=== PATIENT | female | born 1960 | race Caucasian/White ===

== ENCOUNTER → 2018-07-21 | Outpatient (CLI) | payer OTHER, MEDICAID | LOC: FIMAGING 14:03 | DX: Z12.31 Encounter for screening mammogram for malignant neoplasm of breast (principal) ==

== ENCOUNTER 2018-11-29 10:39 | Inpatient (IN) | payer OTHER, MEDICAID ==
[2018-11-29] MEDS ORDERED: NS 1,000 ML IV ONE (11:18)
[2018-11-29 11:20] LABS: PLATELET COUNT 372 10^3/uL (150-400)
[2018-11-29] MEDS ORDERED: IOHEXOL 350mgI/ML (OMNIPAQUE) 150 ML BTL IV ONE (14:02)
--- NOTE | 2018-11-29 14:29 | EDPHY ---
General - History Smoking Status: Unknown if ever smoked Time Seen by Provider: 11/29/18 12:15 Narrative: CLINICAL IMPRESSION: Hypoxia, lethargy, leukocytosis ASSESSMENT/PLAN: Patient is a 58-year-old female who resides at [facility] with a history of Parkinson's disease and bipolar disorder. Patient sent here for further evaluation of increased oxygen needs and emesis. Patient is afebrile, chronically ill appearing however not toxic-appearing. History mostly obtained by nurse practitioner Scott Buitrago at [facility], patient difficult historian and minimally interactive. Sent here with concerns of aspiration pneumonia. CBC revealed mild leukocytosis of 13,000, metabolic panel grossly unremarkable without evidence of metabolic abnormality or acute kidney injury. [place] level WNL. Chest x-ray with no evidence of pneumonia. Symptoms have been ongoing for several days, low suspicion for ACS. No clinical findings to suggest CHF. In light of increased oxygen needs and sedentary life style, proceeded with CTA chest with concern for pulmonary embolism. CT chest with mild atelectasis, no evidence of pneumonia or pulmonary embolism. Patient had generalized, nonfocal tenderness and grimacing with abdominal palpation. CT of the abdomen and pelvis revealed no acute intra- abdominal findings. Patient has had no diarrhea or fever, she has not been on any recent antibiotics. She had no signs of meningismus to suggest meningococcemia. I do not suspect C difficile or norovirus. It is unclear the exact etiology of her hypoxia, suspect secondary to dehydration status and likely viral illness in light of several days of emesis; no clear source of infection. Blood cultures pending. I was unable to obtain a urine sample in the emergency department however one is ordered and pending. The patient remained hemodynamically stable in the emergency department requiring 4 L of oxygen via nasal cannula. She will be admitted to the hospitalist service for further evaluation and management, I spoke with Dr. Hughes who will be the admitting physician. DIFFERENTIAL DX: Infectious process, PE, UTI, medication complication ED COURSE: 1115: Discussed with Dr. Schmidt 12:00 p.m.: Case discussed with patient's primary care provider at [facility] nurse practitioner Scott buitrago. He reports this past patient had multiple episodes of emesis, they performed a CBC and a CMP which were unremarkable. Patient continued to have emesis through the weekend which she presumed was gastritis however staff informed him that they were concerned about increased lethargy. Patient also was requiring oxygen during the daytime which is unusual for her. She is typically on 2 L of oxygen at nighttime only and is now requiring 4 L of oxygen throughout the day. Patient is difficult to understand at her baseline. CHIEF COMPLAINT: Lethargy, emesis, hypoxia HPI: Patient is a 58-year-old female with a significant history of Parkinson's, bipolar, anxiety and functional dyspepsia who was sent in to the emergency department by Alcides Fagan for further evaluation of hypoxia and emesis. Per nursing staff, patient has had increased lethargy, multiple episodes of emesis and increased oxygen needs that has been progressing over the last several days. Patient has had no fever, is very difficult to understand her baseline. They report very little intake over the last several days secondary to emesis. She has had no complaints of chest pain, shortness of breath, abdominal pain, cough or urinary symptoms. There specifically concerned about aspiration pneumonia. PMH: Parkinson's, bipolar disorder Family History: Noncontributory Social History: Denies, lives at a half-way facility. REVIEW OF SYSTEMS: All other systems negative Constitutional: No fever, no chills, appetite change. Eyes: No discharge, vision change. ENT: No sore throat, congestion, ear pain. Cardiovascular: No chest pain, no palpitations. Respiratory: Hypoxia. Gastrointestinal: Emesis. Genitourinary: No hematuria, dysuria, flank pain, pelvic pain Musculoskeletal: No back pain, joint swelling, joint pain, myalgias. Skin: No rashes, color change. Neurological: No headache, dizziness, weakness. PHYSICAL EXAM: General Appearance: Patient is chronically ill-appearing. She does open her eyes when I asked her name, she does not specifically answer questions. HENT: Normocephalic, atraumatic. Bilateral external ears are normal. Bilateral tympanic membranes are normal with pearly waters reflex. Nares are clear, mucosa is moist Oropharynx is clear, oropharynx is dry uvula is midline. There is no tonsillar enlargement or exudate. Eyes: PERRLA, right pupil approximately 3 mm and reactive, left pupil is approximately 2 mm and less reactive. There is hyperemia generally to the left conjunctiva. When reviewing her records, this is her baseline. Neck: Supple, nontender, no lymphadenopathy, no midline pain, FROM, no meningismus. Respiratory: There are no retractions, lungs are clear to auscultation. Cardiac: Regular rate and rhythm, no murmurs or gallops. Gastrointestinal: Abdomen is soft, on initial examination she has no tenderness to palpation, bowel sounds normal, no masses/hernia, no rigidity, guarding or focal peritoneal findings. Neurological: Alert, arousable, diminished mental status as mentioned above. Patient does follow commands, strength is equal bilateral upper and lower extremities. Skin: Warm, dry, no rashes, no nodules on palpation. Musculoskeletal: Extremities are symmetrical, full range of motion, no tenderness, deformity, swelling, or erythema. MEDICAL DECISION MAKING: Patient was seen independently. Secondary supervising physician at time of evaluation was Dr. Schmidt. Diagnosis: Hypoxia, lethargy, leukocytosis. New, requires workup Summary: See Assessment and Plan for summary of ED visit Clinical lab tests: ordered / reviewed. Independent visualization of images, tracing, or specimens: Yes. 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 Schmidt, Dr. Hughes Patient Progress: Stable, admit. (Analy Crook) Medical Decision Making: I did not see this patient while she was in the emergency department. However her care was discussed with the PA while the patient was in the department. I agree with treatment plan and management (Vinay Schmidt) - Objective Vital Signs: Initial Vital Signs Temperature (C) 37.6 C 11/29/18 10:48 Heart Rate 69 11/29/18 10:48 Respiratory Rate 18 11/29/18 10:48 Blood Pressure 135/80 H 11/29/18 10:48 O2 Sat (%) 88 L 11/29/18 10:48 O2 Delivery Mode Nasal Cannula O2 (L/minute) 2 Allergies/Adverse Reactions: Milk Containing Products Allergy (Unknown, Unverified 11/29/18 10:46) codeine [Codeine] Allergy (Unverified 11/29/18 10:46) tetracycline [Tetracycline] Allergy (Unverified 11/29/18 10:46) dairy Allergy (Uncoded 11/29/18 10:46) Home Medications: Medication Instructions Recorded Acetaminophen [Tylenol ES 500 mg 1,000 mg PO Q6 PRN 11/29/18 (*)] Carbidopa/Levo Cr 25/100Mg 1 tab PO QID@07,12,16,20 11/29/18 [Sinemet CR 25/100 MG (*)] Carbidopa/Levodopa 25/100Mg 2 tab PO QID@08,12,16,20 11/29/18 [Sinemet 25/100 MG (*)] Cholecalciferol Vit D3 [Vitamin D3 50,000 unit PO FR 11/29/18 (*)] Entacapone [Comtan 200 MG (RX)] 200 mg PO TID@08,16,20 11/29/18 Hydrocodone/APAP 5/325 [[place] 2 each PO Q6 PRN 11/29/18 5/325 (*)] Hydrocodone/APAP 5/325 [[place] 2 tab PO HS 11/29/18 5/325 (*)] Lactulose [Enulose] 20 gm PO DAILY 11/29/18 Levothyroxine [Synthroid 88 mcg 88 mcg PO DAILY06 11/29/18 (*)] [place] Carbonate 150 mg PO TID@,12,20 11/29/18 Magnesium Hydroxide [Milk of 30 ml PO DAILY PRN 11/29/18 Magnesia] OLANZapine [ZyPREXA 2.5 mg (*)] 7.5 mg PO HS 11/29/18 Ondansetron [Ondansetron Odt] 4 mg PO Q8 PRN 11/29/18 Petrolat,Wht/Min Oil/Sod Chl 0.25 inch LEFTEYE HS 11/29/18 [Refresh P.m. Ointment] Polyethylene Glycol 3350 [Miralax 17 gm PO Q2D 11/29/18 17 gm (*)] Polyvinyl Alcohol [Artificial 1 drop OP QID 11/29/18 Tears] Ranitidine HCl 150 mg PO HS 11/29/18 Sennosides/Docusate Sodium 1 each PO BID 11/29/18 [Senna-S Tablet] Simethicone [Mylicon 80 mg (OTC)] 80 mg PO TID PRN 11/29/18 Venlafaxine Xr [Effexor Xr] 1 tab PO DAILY 11/29/18 clonazePAM [Clonazepam] 1 tab PO Q12H PRN 11/29/18 traZODone [traZODONE 50MG (*)] 25 mg PO HS 11/29/18 Benzocaine [Anbesol] 1 huy MM Q8HRS PRN 11/30/18 Menthol [Mineral Freez] 1 huy TP TID PRN 11/30/18 Sennosides/Docusate Sodium 1 each PO BID PRN 11/30/18 [Senna-S Tablet] Laboratory Results: Laboratory Results 11/29/18 11:05 11/29/18 11:05 Microbiology Results: MICROBIOLOGY 11/29/18 11:05 Blood Blood Culture - Preliminary 11/29/18 11:05 Blood Blood Culture - Preliminary Medications Given: Carbidopa/Levodopa (Sinemet Cr) 1 tab PO QID [facility] Stop: 05/29/19 09:14 Last Admin: 12/01/18 12:45 Dose: 1 tab Carbidopa/Levodopa (Sinemet) 2 tab PO QID [facility] Stop: 05/29/19 09:14 Last Admin: 12/01/18 12:44 Dose: 2 tab Cholecalciferol (D3-50) 50,000 unit PO Q7D [facility] Stop: 05/29/19 08:59 Last Admin: 11/30/18 10:55 Dose: 50,000 unit Enoxaparin Sodium (Lovenox) 40 mg SC DAILY [facility] Stop: 05/29/19 08:59 Last Admin: 12/01/18 10:33 Dose: 40 mg Entacapone (Comtan) 200 mg PO TID [facility] Stop: 05/29/19 08:59 Last Admin: 12/01/18 10:29 Dose: 200 mg Famotidine (Pepcid) 20 mg PO HS [facility] Stop: 05/29/19 20:59 Last Admin: 11/30/18 20:35 Dose: 20 mg Sodium Chloride (Ns) 1,000 mls @ 125 mls/hr IV CONT [facility] Stop: 05/28/19 14:59 Last Admin: 11/30/18 20:32 Dose: 1,000 mls Levothyroxine Sodium (Synthroid) 88 mcg PO DAILY06 [facility] Stop: 05/30/19 05:59 Last Admin: 12/01/18 05:07 Dose: 88 mcg [place] Carbonate ([place] Carbonate) 150 mg PO TID [facility] Stop: 05/29/19 09:14 Last Admin: 12/01/18 10:29 Dose: 150 mg Olanzapine (Zyprexa) 7.5 mg PO HS [facility] Stop: 05/29/19 20:59 Last Admin: 11/30/18 20:34 Dose: 7.5 mg Polyethylene Glycol (Miralax) 17 gm PO Q2D [facility] Stop: 05/29/19 08:59 Last Admin: 11/30/18 11:35 Dose: Not Given Venlafaxine HCl (Effexor Xr) 150 mg PO DAILY [facility] Stop: 05/29/19 08:59 Last Admin: 12/01/18 10:29 Dose: 150 mg Discontinued Medications Hydromorphone HCl (Dilaudid) 0.2 - 0.4 mg IVP Q4HRS PRN PRN Reason: Pain, Severe Unable to Take PO Stop: 12/09/18 14:54 Last Admin: 11/30/18 08:34 Dose: 0.4 mg Sodium Chloride (Ns) 1,000 mls @ 0 mls/hr IV ONCE ONE PRN Reason: Wide Open Stop: 11/29/18 11:19 Last Admin: 11/29/18 11:28 Dose: 1,000 mls Lorazepam (Ativan Injection) 0.5 - 1 mg IVP Q8HRS PRN PRN Reason: Anxiety, Unable to Take PO Stop: 05/28/19 15:06 Last Admin: 11/30/18 08:37 Dose: 1 mg Departure - Departure Disposition: [facility]
[2018-11-29] MEDS ORDERED: ACETAMINOPHEN 650 MG SUPP PR PRN (14:55)
[2018-11-29] MEDS ORDERED: HYDROmorphONE/DILAUDID 1 MG/ML INJ IVP PRN (14:55)
[2018-11-29] MEDS ORDERED: PROMETHAZINE HCL 25 MG/ML INJ IVP PRN (14:55)
[2018-11-29] MEDS ORDERED: ACETAMINOPHEN 325 MG TAB PO PRN (14:55)
[2018-11-29] MEDS ORDERED: ONDANSETRON 4 MG/2 ML VIAL IVP PRN (14:55)
[2018-11-29] MEDS ORDERED: ONDANSETRON DISINTEGRATING 4 MG TAB PO PRN (14:55)
[2018-11-29] MEDS ORDERED: LORazepam 2 MG/ML INJ IVP PRN (15:07)
[2018-11-29] MEDS ORDERED: ALBUTEROL 3 ML DEYVIAL IH PRN (15:07)
[2018-11-29] MEDS ORDERED: LORazepam 0.5 MG TAB PO PRN (15:07)
--- NOTE | 2018-11-29 15:21 | PDGENHP ---
History and Physical - Chief Complaint altered mental status - History of Present Illness 58 yo F with PMH of Parkinson's disease, bipolar d/o and chronic hypoxia presenting from [facility] where she was noted to be altered--increasingly lethargic and unresponsive. Apparently at the facility she was noted to be vomiting last week, and again today was found with vomit in her hair and on her bed and was unable to respond to questions. Patient is usually on 2L oxygen at night only and was requiring 4L oxygen today to maintain sats in the 90s and given the concurrent evidence of vomiting there was concern for aspiration pneumonia and she was sent to the ER for further evaluation. At the time of my evaluation, patient is unable to respond to questions--she does groan when touched, particularly over the abdomen and she actively resists having her eyelids opened but is otherwise essentially unresponsive. In ER a CTA chest and CT abdomen were obtained which were negative for PE, pneumonia or any acute abdominal process. History is limited by patients inability to answer questions and therefore this history obtained entirely by chart review and discussion with ER doctor. History Information - Allergies/Home Medication List Allergies/Adverse Reactions: Milk Containing Products Allergy (Unknown, Unverified 11/29/18 10:46) codeine [Codeine] Allergy (Unverified 11/29/18 10:46) tetracycline [Tetracycline] Allergy (Unverified 11/29/18 10:46) dairy Allergy (Uncoded 11/29/18 10:46) Home Medications: Acetaminophen [Tylenol Extra Strength] 1,000 mg PO QID PRN 09/24/14 [Last Taken Unknown] Aricept 5 MG (RX) 10 mg PO DAILY 09/24/14 [Last Taken Unknown] Atorvastatin Calcium [Lipitor 10 mg (*)] 10 mg PO HS 09/24/14 [Last Taken ] Benztropine Mesylate [Cogentin] 1 mg PO DAILY 09/24/14 [Last Taken Unknown] Carbidopa/Levodopa [Carbidopa-Levodopa 25-100 Tab] 1 tab PO 1000,1400,1800 09/24 [Last Taken 09/24/14] Carbidopa/Levodopa [Carbidopa-Levodopa 25-100 Tab] 1 tab PO DAILY@0600 09/24/14 [Last Taken 09/24/14] Donepezil HCl [Aricept 5 MG (*)] 5 mg PO HS 09/24/14 [Last Taken 09/23/14] Duoneb (RX) 3 ml IH Q6 PRN 09/24/14 [Last Taken Unknown] Hydrocodone/APAP 5/325 [Alex 5/325 (*)] 1 tab PO DAILY PRN 09/24/14 [Last Taken 09/23/14] Hyoscyamine Sulfate [Levsin, Hyomax-Sl 0.125 mg (*)] 0.125 mg PO Q4 PRN [Last Taken Unknown] Ibuprofen [Motrin (*)] 800 mg PO Q6 PRN 09/24/14 [Last Taken Unknown] Levothyroxine [Synthroid 88 mcg (*)] 88 mcg PO DAILY 09/24/14 [Last Taken ] [place] Carbonate 150 mg PO TID 09/24/14 [Last Taken 09/24/14] Magnesium Hydroxide [Milk of Magnesia (*)] 30 ml PO DAILY 09/24/14 [Last Taken Unknown] Ondansetron Odt [Zofran Odt 4 mg (*)] 4 mg PO Q4 PRN 09/24/14 [Last Taken Unknown] Oxybutynin Chloride [Ditropan] 5 mg PO HS 09/24/14 [Last Taken 09/23/14] Ranitidine HCl 150 mg PO HS 09/24/14 [Last Taken 09/23/14] Sennosides/Docusate Sodium [Senna-Docusate Sodium Tablet] 1 tab PO BID PRN 09/24 [Last Taken Unknown] Simethicone [Mylicon] 80 mg PO TID PRN 09/24/14 [Last Taken Unknown] Venlafaxine HCl [Venlafaxine HCl ER] 75 mg PO DAILY 09/24/14 [Last Taken ] clonazePAM [Klonopin (*)] 0.5 mg PO DAILY PRN 09/24/14 [Last Taken Unknown] traZODONE 50MG (RX) 50 mg PO HS 09/24/14 [Last Taken 09/23/14] I have personally reviewed and updated: family history, medical history, social history, surgical history - Past Medical History dementia, hyperlipidemia, psychiatric history (bipolar d/o with hx of BRIGIDO) Additional medical history: chronic nocturnal hypoxia --2L at night. osteoporosis. sleep apnea. Parkinsons disease - Surgical History Reports: no pertinent surgical hx - Family History Positive for: cancer (mother with colon cancer) - Social History Smoking Status: Unknown if ever smoked Alcohol Use: None Drug Use: None Additional social history: per chart review patient residing at [facility], and no smoking/drinking/drugs Review of Systems Review of Systems: unobtainable 2/2 mental status Physical Exam Physical Exam: Temp Pulse Resp BP Pulse Ox 37.2 C 81 18 116/71 92 11/29/18 14:28 11/29/18 14:28 11/29/18 14:28 11/29/18 14:28 11/29/18 14:28 Constitutional: chronically ill appearing, obese Eyes: PERRL, anicteric sclera, other (resists having her eyes opened) Ears, Nose, Mouth, Throat: moist mucous membranes, poor dentition Cardiovascular: regular rate and rhythym, no murmur, rub, or gallop, No edema Respiratory: reduced air movement, inspiratory crackles Gastrointestinal: normoactive bowel sounds, tenderness (diffuse ttp ), No guarding, No rebound Genitourinary: no bladder tenderness Skin: warm, normal color Musculoskeletal: other (moves spontaneously and withdraws to pain, not following commands), No asymmetric calves Neurologic: CN II-XII Intact, No AAOx3 Psychiatric: encephalopathic Lab Data & Imaging Review 11/29/18 11:05 11/29/18 11:05 WBC 13.82 10^3/uL (3.80-9.50) H 11/29/18 11:05 RBC 4.73 10^6/uL (4.18-5.33) 11/29/18 11:05 Hgb 14.8 g/dL (12.6-16.3) 11/29/18 11:05 Hct 48.2 % (38.0-47.0) H 11/29/18 11:05 MCV 101.9 fL (81.5-99.8) H 11/29/18 11:05 MCH 31.3 pg (27.9-34.1) 11/29/18 11:05 MCHC 30.7 g/dL (32.4-36.7) L 11/29/18 11:05 RDW 13.4 % (11.5-15.2) 11/29/18 11:05 Plt Count 372 10^3/uL (150-400) 11/29/18 11:05 MPV 10.6 fL (8.7-11.7) 11/29/18 11:05 Neut % (Auto) 77.9 % (39.3-74.2) H 11/29/18 11:05 Lymph % (Auto) 13.7 % (15.0-45.0) L 11/29/18 11:05 [place] % (Auto) 6.2 % (4.5-13.0) 11/29/18 11:05 Eos % (Auto) 1.3 % (0.6-7.6) 11/29/18 11:05 Baso % (Auto) 0.7 % (0.3-1.7) 11/29/18 11:05 Nucleat RBC Rel Count 0.0 % (0.0-0.2) 11/29/18 11:05 Absolute Neuts (auto) 10.78 10^3/uL (1.70-6.50) H 11/29/18 11:05 Absolute Lymphs (auto) 1.89 10^3/uL (1.00-3.00) 11/29/18 11:05 Absolute Monos (auto) 0.85 10^3/uL (0.30-0.80) H 11/29/18 11:05 Absolute Eos (auto) 0.18 10^3/uL (0.03-0.40) 11/29/18 11:05 Absolute Basos (auto) 0.09 10^3/uL (0.02-0.10) 11/29/18 11:05 Absolute Nucleated RBC 0.00 10^3/uL (0-0.01) 11/29/18 11:05 Immature Gran % 0.2 % (0.0-1.1) 11/29/18 11:05 Immature Gran # 0.03 10^3/uL (0.00-0.10) 11/29/18 11:05 VBG Lactic Acid 1.1 mmol/L (0.7-2.1) 11/29/18 11:05 Sodium 143 mEq/L (135-145) 11/29/18 11:05 Potassium 4.7 mEq/L (3.5-5.2) 11/29/18 11:05 Chloride 109 mEq/L (97-110) 11/29/18 11:05 Carbon Dioxide 31 mEq/l (22-31) 11/29/18 11:05 Anion Gap 3 mEq/L (6-14) L 11/29/18 11:05 BUN 18 mg/dL (7-23) 11/29/18 11:05 Creatinine 0.7 mg/dL (0.6-1.0) 11/29/18 11:05 Estimated GFR > 60 11/29/18 11:05 Glucose 103 mg/dL (70-100) H 11/29/18 11:05 Calcium 9.3 mg/dL (8.5-10.4) 11/29/18 11:05 [place] 0.9 mEq/L (0.6-1.2) 11/29/18 11:05 Visualized and Interpreted Chest x-ray results: Yes Chest X-Ray results: no infiltrate Visualized and Interpreted imaging results: Yes Interpretation: CTA chest: no PE, no PNA, bilateral atelectasis. 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 No obvious e/o infection though with increased hypoxia respiratory source of infection versus abdominal given vomiting is possible. Cultures pending, will get UA, will get respiratory PCR. Also could be due to decompensation of her psych issues given volitional component. Will check ecg/trop to r/o atypical presentation of ACS. [place] level wnl. # acute on chronic hypoxic respiratory failure: at baseline on nocturnal o2 only currently requiring 4L to maintain sats in the 90s, imaging without PE/PNA and only mild atelectasis. No significant wheeze on exam. IS and ambulation when able, resp prc, prn nebs. # abdominal pain: patient with tenderness to palpation diffusely on abdominal exam, CT without acute findings, lactate wnl. Will check LFTs/lipase. # bipolar d/o: with hx of severe sxs and suicidality as well as what sounds like catatonic features, will continue home meds when able to take PO, if w/u remains negative for other etiology would consider psych consult # parkinsons dementia: apparently at baseline patient is somewhat difficult to understand but interactive and ambulatory, pt/ot/cm # hypothyroid: will check tsh # Hellen KONG listed as MDPOA # IP status, patient will likely require > 48 hours stay for eval/mgmt of above Patient new to my care. Old records reviewed and summarized as above. Care plan reviewed with ER doctor as above.
[2018-11-29] MEDS: NS 1,000 ML IV SCH (16:05)
[2018-11-30] MEDS: NS 1,000 ML IV SCH ×3 (00:04→20:32)
[2018-11-30 06:12] LABS: PLATELET COUNT 322 10^3/uL (150-400)
[2018-11-30] MEDS ORDERED: SIMETHICONE 80 MG TAB CHEW PO PRN (08:55)
[2018-11-30] MEDS ORDERED: clonazePAM 0.5 MG TAB PO PRN (08:55)
[2018-11-30] MEDS ORDERED: HYDROCORTISONE 1% CREAM TP PRN (08:55)
[2018-11-30] MEDS ORDERED: ACETAMINOPHEN 500 MG TAB PO PRN (08:55)
[2018-11-30] MEDS ORDERED: CHOLECALCIFEROL VIT D3 50,000 UNIT CAP PO SCH (09:00)
[2018-11-30] MEDS ORDERED: TEARS/DEXTRAN 70/HYPROMELLOSE 15 ML OPHT.BTL EACHEYE PRN (09:10)
--- NOTE | 2018-11-30 09:23 | HOSPPROG ---
Hospitalist Progress Note Assessment/Plan: 58 yo F w parkinson's, polypharmacy admittted w toxic metabolic encephalopathy encephalopathy: cause uncertain but definitely present more alert today than last night, per dr penn reasonable medical workup w no apparent cause states parkinson's meds had been held at , uncertain time trop neg Li level ok she does have vomiting but no enteritis or sig constipation seen on CT 1. check GI path panel 2. restart parkinson's meds 3. i have apprehension about her benzos but not sedated this AM 4. hold further pain meds 5. follow hypoxemia: this is artifact from her severe tremor dc pulse ox (and tele) chest imaging clear, no pe check abg parkinson's: resume meds neris i have called the pharmacy to get this started vomiting: gi path panel proph: lmwh dispo: inpt Subjective: cxr, abd and chest CT images reviewed.interp by me. more alert today, able to answer questions. states she has vomited. per her, parkinson's mds have been held for an unclear period of time Objective: Vital Signs Temp Pulse Resp BP Pulse Ox 36.4 C 85 22 H 112/67 89 L 11/30/18 08:00 11/30/18 08:00 11/30/18 08:00 11/30/18 08:00 11/30/18 08:00 Microbiology 11/29/18 16:15 Respiratory Panel (PCR) - Final Nasal, Sinus - Weare Viral Transport No Organism Detected By Pcr Laboratory Results 11/30/18 04:38 11/30/18 04:38 11/29/18 11/30/18 12/01/18 05:59 05:59 05:59 Intake Total 1800 Output Total 300 Balance 1500 - Physical Exam Constitutional: appears nourished, other (moaning, then able to be oriented) Eyes: PERRL, anicteric sclera Ears, Nose, Mouth, Throat: moist mucous membranes, hearing normal Cardiovascular: regular rate and rhythym, no murmur, rub, or gallop Respiratory: no respiratory distress, no rales or rhonchi Gastrointestinal: normoactive bowel sounds, other (tenderness w no rebound or guarding) Genitourinary: No muniz in urethra Skin: warm, normal color Musculoskeletal: full muscle strength Neurologic: other (parkinson's tremor most notable in LUE. alert and answering questions but some inconsistencies), No AAOx3 Psychiatric: interacting appropriately, not anxious Lymph, Heme, Immunologic: no cervical LAD ICD10 Worksheet Patient Problems: Problems Problem Status Onset Depression - Depressive disorder Active Hypoxia Active
--- NOTE | 2018-11-30 10:31 | ASMTCASEMG ---
Living Arrangements What is your living Answers: Alone arrangement? Who do you live with? Type Of Residence What kind of residence do Answers: Apartment you live in? Discharge Plan Comments Coordination Status Comments Notes: Patient is a 58yo single female with hx of Parkinsons who is disabled and lives at [facility]. Patient presented with AMS and acute hypoxic respiratory failure. She has been admitted OBS for encephalopathy, abdominal pain, acute on chronic hypoxic respiratory failure,parkinsons dementia, hypothyroid, and Bipolar Disorder with a hx of suicidality and catatonic features. 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 Likely, patient will return to [facility]. CM will follow. Date Signed: 11/30/2018 10:31 AM Electronically Signed By:Kina Watson LCSW
[2018-11-30] MEDS: CARBIDOPA/LEVODOPA 25 MG/100 MG TAB PO SCH ×4 (10:49→20:33)
[2018-11-30] MEDS: CARBIDOPA/LEVO CR 25 MG/100 MG TAB PO SCH ×4 (10:52→20:35)
[2018-11-30] MEDS: VENLAFAXINE XR 150 MG CAP PO SCH (10:52)
[2018-11-30] MEDS: LITHIUM CARBONATE 300 MG TAB PO SCH ×3 (10:53→20:33)
[2018-11-30] MEDS: ENTACAPONE 200 MG TAB PO SCH ×3 (10:53→20:35)
[2018-11-30] MEDS: ENOXAPARIN 40 MG/0.4 ML SYR SC SCH (10:58)
[2018-11-30] MEDS: POLYETHYLENE GLYCOL 3350 17 GM PKT PO SCH (11:35)
[2018-11-30] MEDS ORDERED: MENTHOL TP PRN (13:12)
[2018-11-30] MEDS ORDERED: BENZOCAINE MM PRN (13:12)
--- NOTE | 2018-11-30 16:27 | CPEKG ---
Test Reason : OPEN Blood Pressure : / mmHG Vent. Rate : 071 BPM Atrial Rate : 068 BPM P-R Int : 121 ms QRS Dur : 070 ms QT Int : 419 ms P-R-T Axes : 039 -38 070 degrees QTc Int : 456 ms Sinus rhythm Left axis deviation por r wave progression Confirmed by [place] ([id number]) on 11/30/2018 4:26:41 PM Referred By: Margaret Hughes Confirmed By:[place]
[2018-11-30] MEDS: OLANZapine 2.5 MG TAB PO SCH (20:34)
[2018-11-30] MEDS: FAMOTIDINE 20 MG TAB PO SCH (20:35)
[2018-12-01] MEDS: LEVOTHYROXINE 88 MCG TAB PO SCH (05:07)
[2018-12-01] MEDS: CARBIDOPA/LEVO CR 25 MG/100 MG TAB PO SCH ×4 (05:07→21:53)
[2018-12-01] MEDS: CARBIDOPA/LEVODOPA 25 MG/100 MG TAB PO SCH ×4 (05:07→21:52)
[2018-12-01] MEDS: VENLAFAXINE XR 150 MG CAP PO SCH (10:29)
[2018-12-01] MEDS: ENTACAPONE 200 MG TAB PO SCH ×3 (10:29→21:53)
[2018-12-01] MEDS: LITHIUM CARBONATE 300 MG TAB PO SCH ×3 (10:29→21:52)
[2018-12-01] MEDS: ENOXAPARIN 40 MG/0.4 ML SYR SC SCH (10:33)
--- NOTE | 2018-12-01 14:07 | HOSPPROG ---
Hospitalist Progress Note Assessment/Plan: 58 yo F w parkinson's, polypharmacy admittted w toxic metabolic encephalopathy encephalopathy: cause uncertain but definitely present more alert today than last night, per dr penn reasonable medical workup w no apparent cause states parkinson's meds had been held at BM, uncertain time trop neg Li level ok she does have vomiting but no enteritis or sig constipation seen on CT 1. check GI path panel 2. restart parkinson's meds 3. i have apprehension about her benzos but not sedated this AM 4. hold further pain meds 5. follow 12/01: above eval largely negative. she had a very large BM yesterday that coincides w improvement in encephalopathy certainly this could be causative hypoxemia: this is artifact from her severe tremor dc pulse ox (and tele) chest imaging clear, no pe abg shows no hypoxia ct w atelectasis (interp by me) parkinson's: resume meds neris i have called the pharmacy to get this started vomiting: gi path panel neg likely 2/2 constipation proph: lmwh dispo: inpt Subjective: tremor much improved. states she feels more like herself Objective: Vital Signs Temp Pulse Resp BP Pulse Ox 36.7 C 67 16 96/58 L 92 12/01/18 12:18 12/01/18 12:18 12/01/18 12:18 12/01/18 12:18 12/01/18 13:05 Microbiology 11/30/18 11:30 Gastrointestinal Tract Panel (PCR) - Final Stool No Organism Detected By Pcr Laboratory Results 11/30/18 04:38 11/30/18 04:38 11/30/18 12/01/18 12/02/18 05:59 05:59 05:59 Intake Total 1800 2320 Output Total 300 Balance 1500 2320 - Physical Exam Constitutional: no apparent distress, appears nourished Eyes: PERRL, anicteric sclera Ears, Nose, Mouth, Throat: moist mucous membranes, hearing normal Cardiovascular: regular rate and rhythym, no murmur, rub, or gallop Respiratory: no respiratory distress, no rales or rhonchi Gastrointestinal: normoactive bowel sounds, soft, non-tender abdomen Genitourinary: no bladder fullness, No muniz in urethra Skin: warm, normal color Musculoskeletal: full muscle strength Neurologic: other (less tremor. more alert) Psychiatric: interacting appropriately ICD10 Worksheet Patient Problems: Problems Problem Status Onset Depression - Depressive disorder Active Hypoxia Active
--- NOTE | 2018-12-01 14:49 | PDMN ---
Medical Necessity Medical necessity: Pt meets inpt criteria per MD order and Neurology GRG. 58 y/ o w/Parkinson's, dementia, bipolar, polypharmacy, and resident of LTC facility, admitted w/toxic metabolic encephalopathy. Upgraded to inpt for further workup to determine etiology, persistent encepholopathy, bl cultures pending, GI path panel, still some vomiting, anticipate>2Mn for ongoing eval/management of above.
[2018-12-01] MEDS: OLANZapine 2.5 MG TAB PO SCH (21:53)
[2018-12-01] MEDS: FAMOTIDINE 20 MG TAB PO SCH (21:53)
[2018-12-02] MEDS: CARBIDOPA/LEVODOPA 25 MG/100 MG TAB PO SCH ×4 (05:10→21:50)
[2018-12-02] MEDS: LEVOTHYROXINE 88 MCG TAB PO SCH (05:10)
[2018-12-02] MEDS: CARBIDOPA/LEVO CR 25 MG/100 MG TAB PO SCH ×4 (05:10→21:50)
[2018-12-02] MEDS: LITHIUM CARBONATE 300 MG TAB PO SCH ×3 (10:14→21:51)
[2018-12-02] MEDS: ENOXAPARIN 40 MG/0.4 ML SYR SC SCH (10:14)
[2018-12-02] MEDS: POLYETHYLENE GLYCOL 3350 17 GM PKT PO SCH (10:14)
[2018-12-02] MEDS: ENTACAPONE 200 MG TAB PO SCH ×3 (10:14→21:50)
[2018-12-02] MEDS: VENLAFAXINE XR 150 MG CAP PO SCH (10:15)
--- NOTE | 2018-12-02 12:43 | HOSPPROG ---
Hospitalist Progress Note Assessment/Plan: 58 yo F w parkinson's, polypharmacy admittted w toxic metabolic encephalopathy encephalopathy, resolving: cause uncertain reasonable medical workup w no apparent cause trop neg Li level ok hypoxemia: possibly artifact from her severe tremor vs atelectasis chest imaging clear, no pe abg shows no hypoxia ct w atelectasis (interp by me) Wean off O2, only uses O2 at night. Will provide IS parkinson's: on home meds vomiting: gi path panel neg likely 2/2 constipation Dehydration, resolved proph: lmwh dispo: inpt. Clearing and likely near baseline today. Will attempt to wean off O2. Likely near discharge possibly tomorrow. Would go back to [facility]. Stop IVF. Cont home meds first encounter with this patient, records reviewed extensively Subjective: no cp or sob. still with supplemental O2 Objective: Vital Signs Temp Pulse Resp BP Pulse Ox 37.0 C 98 17 103/59 L 90 L 12/02/18 04:00 12/02/18 04:00 12/02/18 04:00 12/02/18 04:00 12/02/18 04:00 12/01/18 12/02/18 12/03/18 05:59 05:59 05:59 Intake Total 2120 240 Output Total 1 Balance 2120 239 - Physical Exam Constitutional: chronically ill appearing Eyes: PERRL Ears, Nose, Mouth, Throat: moist mucous membranes, hearing normal Cardiovascular: regular rate and rhythym Respiratory: no respiratory distress, no rales or rhonchi, reduced air movement Gastrointestinal: normoactive bowel sounds, soft, non-tender abdomen Skin: warm Musculoskeletal: generalized weakness Neurologic: AAOx3 Psychiatric: interacting appropriately, not anxious, not encephalopathic Lymph, Heme, Immunologic: No petechiae ICD10 Worksheet Patient Problems: Problems Problem Status Onset Depression - Depressive disorder Active Hypoxia Active
[2018-12-02] MEDS: FAMOTIDINE 20 MG TAB PO SCH (21:50)
[2018-12-02] MEDS: OLANZapine 2.5 MG TAB PO SCH (21:50)
[2018-12-03] MEDS: CARBIDOPA/LEVODOPA 25 MG/100 MG TAB PO SCH ×2 (06:20→11:15)
[2018-12-03] MEDS: CARBIDOPA/LEVO CR 25 MG/100 MG TAB PO SCH ×2 (06:20→11:15)
[2018-12-03] MEDS: LEVOTHYROXINE 88 MCG TAB PO SCH (06:20)
[2018-12-03] MEDS: ENTACAPONE 200 MG TAB PO SCH (08:33)
[2018-12-03] MEDS: VENLAFAXINE XR 150 MG CAP PO SCH (08:33)
[2018-12-03] MEDS: LITHIUM CARBONATE 300 MG TAB PO SCH (08:33)
[2018-12-03] MEDS: ENOXAPARIN 40 MG/0.4 ML SYR SC SCH (08:33)
--- NOTE | 2018-12-03 11:15 | ASMTLACE ---
LACE Length of stay for Answers: 3 days current admission Acuity / Level of Answers: Yes Care: Did the patient have an inpatient admission? Comorbidities - select Answers: Dementia all that apply Other Notes: HLD; Parkinsons disease # of Emergency department Answers: 1-2 visits in the last 6 months Social determinants Answers: Mental health diagnosis (anxiety, depression, pers onality disorders, etc.) Score: 14 Date Signed: 12/03/2018 11:14 AM Electronically Signed By:Nataly Mann RN
--- NOTE | 2018-12-03 11:22 | ASMTDCNOTE ---
Case Management Discharge Discharge Order Complete? Answers: Yes Patient to Obtain Answers: Other Notes: [facility] Medications Transportation Arranged Answers: [facility] Stretcher Transport will Pick (Date 12/03/2018 01:00 PM & Time) Case Management Transport Answers: Yes Form Complete Faxed Final Orders Answers: Yes Discharge Comments Notes: Patient discharged back to home at [facility]. Mario at arranged [facility] stretcher transport. Orders sent to facility. Date Signed: 12/03/2018 11:21 AM Electronically Signed By:Nataly Mann RN
--- NOTE | 2018-12-03 12:06 | PDDCSUM ---
Discharge Summary Discharge Summary: 58 yo F w parkinson's, admittted w toxic metabolic encephalopathy likely due to polypharmacy. Meds were adjusted. Pain meds including [place] were stopped and she has not required any pain meds during this hospitalization. If she were to have pain going forward, would treat without narcotic pain meds if possible and if needed, escalate to Tramadol. Trazadone was also stopped. Dehydration also contributed. She was also noted to be hypoxic possible from artifact per below vs atelectasis. There was no e/o infection or pneumonia. With an IS she was weaned off and is now on RA during the day on supplemental O2 at night. DDX: encephalopathy, resolving: cause uncertain reasonable medical workup w no apparent cause trop neg Li level ok hypoxemia: possibly artifact from her severe tremor vs atelectasis chest imaging clear, no pe abg shows no hypoxia ct w atelectasis (interp by me) Wean off O2, only uses O2 at night. IS parkinson's: on home meds vomiting: gi path panel neg likely 2/2 constipation, stool softners restarted Dehydration, resolved proph: lmwh Exam: NAD AAOX3 RRR CTA B S/NT/ND MEDS: SEE MED REC F/U: WITH PCP IN ONE WEEK TOTAL TIME SPENT ON D/C IS 35 MINS
--- NOTE | 2018-12-03 12:08 | PDIAF ---
- Diagnosis Diagnosis: ENCEPHALOPATHY Code Status: Full Code - Medication Management Discharge Medications: electronically signed and located in the Home Medication List. - Orders Isolation Type: None Diet Recommendation: no restrictions on diet Diet Texture: Dysphagia 2 - Mechanically Altered - Chopped, Ground, Thin Liquids , Meds Whole in Puree Additional Instructions: activity: as tolerated f/u: with PCP in one week - Follow Up Care Current Providers and Referrals: Patient,NotPresent [Unknown] - As per Instructions
[2018-12-03 12:48] VITALS: BP 95/70
== END 2018-12-03 13:23 | DRG 92 ==
LOC: EDBD → EDUNIT# → F3E 15:26 → OBSVTOIN 11-30 16:24
PROVIDERS: ADMIT Internal Medicine; ATTEND Internal Medicine
DX: G92 Toxic encephalopathy (principal); J98.11 Atelectasis; R09.02 Hypoxemia; T40.2X5A Adverse effect of other opioids, initial encounter; G20 Parkinson's disease; F02.80 Dementia in other diseases classified elsewhere, unspecified severity, without behavioral disturbance, psychotic disturbance, mood disturbance, and anxiety; E86.0 Dehydration; R25.1 Tremor, unspecified; K59.00 Constipation, unspecified; F31.9 Bipolar disorder, unspecified; E78.5 Hyperlipidemia, unspecified; M81.0 Age-related osteoporosis without current pathological fracture; G47.30 Sleep apnea, unspecified; E03.9 Hypothyroidism, unspecified
CPT/HCPCS: 92526-GN; 92610-GN; 97116-GP; 97162-GP; 97165-GO; 97530-GP; 97535-GO; G0378; J1170; J1650; J2060; Q9967